=== PATIENT | female | born 1985 | race Caucasian/White ===

== ENCOUNTER 2018-02-25 10:03 | Inpatient (IN) | payer OTHER ==
[2018-02-25] MEDS ORDERED: CITRIC ACID-SODIUM CITRATE 15 ML CUP PO ONE (10:22)
[2018-02-25] MEDS ORDERED: ceFAZolin IN SWFI 2 GM/20 ML SYRINGE IVP ONE (10:22)
[2018-02-25] MEDS ORDERED: LACTATED RINGERS 1,000 ML IV ONE (10:22)
[2018-02-25] MEDS ORDERED: diphenhydrAMINE 50 MG/ML 1 ML VIAL IVP PRN ×2 (10:43)
[2018-02-25] MEDS ORDERED: diphenhydrAMINE 50 MG CAP PO PRN (10:43)
[2018-02-25] MEDS ORDERED: ZOLPIDEM 5 MG TAB PO PRN (10:43)
[2018-02-25] MEDS ORDERED: ONDANSETRON 4 MG/2 ML VIAL IVP PRN (10:43)
[2018-02-25] MEDS ORDERED: METOCLOPRAMIDE 5 MG/ML 2 ML VIAL IVP PRN (10:43)
[2018-02-25] MEDS ORDERED: diphenhydrAMINE 25 MG CAP PO PRN (10:43)
[2018-02-25] MEDS ORDERED: HYDROcodone/APAP 5-325MG 1 EACH TAB PO PRN (10:43)
[2018-02-25] MEDS ORDERED: IBUPROFEN 600 MG TAB PO PRN (10:43)
[2018-02-25] MEDS ORDERED: NALOXONE 0.4 MG/ML 1 ML VIAL IV PRN (10:43)
[2018-02-25] MEDS ORDERED: ACETAMINOPHEN TAB 325 MG TAB PO PRN (10:43)
[2018-02-25] MEDS ORDERED: OXYTOCIN 20 UNITS/1000 ML NS 1,000 ML IV SCH (10:45)
[2018-02-25 10:51] LABS: Basophils % (A) 0 %; Eosinophils # (A) 0.1 k/uL (0-0.7); Eosinophils % (A) 1 %; HCT 40.5 % (34.0-46.0); HGB 13.1 gm/dL (11.4-16.0); Lymphocytes # (A) 1.3 k/uL (1.0-4.8); Lymphocytes % (A) 11 %; MCH 29.2 pg (25.0-35.0); MCHC 32.2 g/dL (31.0-37.0); MCV 90.7 fL (80.0-100.0); Mean Platelet Volume 7.2; Monocytes # (A) 0.5 k/uL (0-1.0); Monocytes % (A) 5 %; Neutrophils # (A) 9.1 k/uL (1.3-7.7); Neutrophils % (A) 80 %; Platelet Count 301 k/uL (150-450); RBC 4.47 m/uL (3.80-5.40); RDW 13.2 % (11.5-15.5); WBC 11.5 k/uL (3.8-10.6)
[2018-02-25] MEDS ORDERED: ACETAMINOPHEN IV (For NPO) 1,000 MG in EMPTY BAG 1 BAG IVPB ONE (11:00)
[2018-02-25 11:06] LABS: Glucose,Whole Blood 112 mg/dL (75-99)
[2018-02-25 11:29] VITALS: BMI 28.1
[2018-02-25] MEDS ORDERED: ONDANSETRON 4 MG/2 ML VIAL ONE (11:32)
[2018-02-25] MEDS ORDERED: MORPHINE SULFATE (PF) 0.3 MG/0.3 ML SYR ONE (11:32)
[2018-02-25] MEDS ORDERED: KETOROLAC 30 MG/ML 1 ML VIAL ONE (11:32)
[2018-02-25] MEDS ORDERED: LACTATED RINGERS 1,000 ML BAG IV ONE (11:32)
[2018-02-25] MEDS ORDERED: OXYTOCIN 10 UNIT/ML 1 ML VIAL ONE (11:32)
[2018-02-25] MEDS ORDERED: NALBUPHINE 10 MG/ML VIAL (10ML MDV) ONE (11:32)
--- NOTE | 2018-02-25 12:45 | P.HPOB ---
History of Present Illness H&P Date: 02/25/18 Chief Complaint: IUP @ 39 2/7 weeks, h/o C/S x 1 desires repeat This is a 32 yo at 39 2/7 weeks that presents for ERCS, prior section done for arrest of labor. she denies any concerns today, + GFM, LOF,VB she has receiveing routine pnc with myself. she is a known DM, type 1 and she is able to manage her BS well with lantus and a short acting novolog. she does see her lithographers printer for management. she has excellent BS control. on lab work she has a blood type of O+, rubella immune, HIV negative, RPR nonreactive, hepatitis B surface antigen negative, GBS positive. Review of Systems Constitutional: Denies chills, Denies fatigue, Denies fever Ears, nose, mouth and throat: Denies headache Cardiovascular: Reports leg edema Respiratory: Denies cough, Denies dyspnea Gastrointestinal: Denies constipation, Denies diarrhea, Denies nausea, Denies vomiting Genitourinary: Reports Past Medical History Past Medical History: Diabetes Mellitus History of Any Multi-Drug Resistant Organisms: None Reported Past Surgical History: Section Past Anesthesia/Blood Transfusion Reactions: No Reported Reaction Smoking Status: Never smoker - Past Family History Mother Family Medical History: No Reported History Medications and Allergies Home Medications Medication Instructions Recorded Confirmed Type Insulin Aspart [NovoLOG] 1 units INJ ACHS PRN 02/21/18 02/25/18 History Insulin Glargine [Lantus] 23 unit INJ HS 02/21/18 02/25/18 History Pnv No.95/Ferrous Fum/Folic AC 1 each PO DAILY 02/25/18 02/25/18 History [ Multivitamin Tablet] Allergies Allergy/AdvReac Type Severity Reaction Status Date / Time No Known Allergies Allergy Verified 02/25/18 10:16 Exam Osteopathic Statement: *. No significant issues noted on an osteopathic structural exam other than those noted in the History and Physical/Consult. targeted physical exam is done on this date, in general this is a well nourished and well developed female in [facility]. she is noted to have non labored breathing, CTA b/l, heart is noted to have a RRR, abdomen is gravid and appropriate, trace LE edema, FHTs, noted to be reactive and no ctx are noted. cervical exam is deferred. - OBG Physical Exam Abdomen: gravid, and appropriate for gestational age Uterus: enlarged Results Result Diagrams: 02/25/18 10:32 Assessment and Plan (1) Term Current Visit: Yes Status: Acute Code(s): Z34.80 - ENCOUNTER FOR SUPRVSN OF NORMAL , UNSP TRIMESTER SNOMED Code(s): 79603743 (2) Diabetes Current Visit: Yes Status: Acute Code(s): E11.9 - TYPE 2 DIABETES MELLITUS WITHOUT COMPLICATIONS SNOMED Code(s): 77330288 (3) H/O section Current Visit: Yes Status: Acute Code(s): Z98.891 - HISTORY OF UTERINE SCAR FROM PREVIOUS SURGERY SNOMED Code(s): 864040676 Plan: plan RCS this am. she is able to maintain good BS control herself and I will let her ocntinue to manage her BS as she has done in the past. we will monitor BS fasting ac ahs in addition.
--- NOTE | 2018-02-25 12:53 | P.OP ---
Date of Procedure: 02/25/18 Preoperative Diagnosis: IUP at 39 and 2/sevenths weeks, type 1 diabetes, history of 1 for arrest of labor Postoperative Diagnosis: Same Procedure(s) Performed: Elective repeat section, with vacuum assist Anesthesia: spinal Surgeon: Yesika Grove Product Support Rep #1: Peng Quintanilla Estimated Blood Loss (ml): 1,000 IV fluids (ml): 1,600 Urine output (ml): 400 Pathology: none sent Condition: stable Disposition: PACU Indications for Procedure: History of 1 desires repeat Operative Findings: Significant scarring is noted from the anterior abdominal wall to the anterior uterus. Bladder flap was noted to be densely adherent taken down sharply with good visualization of the bladder. Male infant delivered at 1206, weight of 9 lbs. 4 oz. with Apgars of 8 and 9 at one and 5 minutes respectively. Description of Procedure: Patient was taken to the operating suite where spinal anesthesia was administered by the anesthesia department. Once the spinal anesthesia was found be adequate she was then prepped and draped in normal sterile fashion in the dorsal supine position. A Pfannenstiel skin incision was made through the old incision site and carried through the underlying layer of fascia. The fascia was then incised in the midline and this was then extended laterally. The rectus muscles were in the midline the peritoneum was identified and entered. Significant anterior abdominal wall adhesions were noted at this time. The incision was then extended with good visualization of the bladder and anterior wall adhesions. Bladder blade was then inserted into the abdomen and the bladder flap was then created using sharp and blunt dissection. A hysterotomy incision was made with the scalpel the amniotic fluid was noted to be clear on rupture. The head was encountered high in the uterus, was then delivered after 3 attempts of a vacuum extraction. Of note a T-incision was preformed to aid in extraction of the infant. 3 pop offs were noted good placement was noted throughout attempts and posterior only attempted once pressure was noted to be in the green zone. Once the was delivered the cord was doubly clamped and cut and handed off to awaiting pediatric nurse. A spontaneous cry was noted with vigorous movement. The placenta was then delivered manually and the uterus was cleared of all clots and debris. Hysterotomy incision was inspected and closed with 0 Vicryl in a running locked fashion 2. Throughout the closure of the uterine incision the Hatfield catheter was noted to be draining clear yellow urine. The hysterotomy site was noted to be hemostatic at this time. A Surgicel was placed over the uterine incision. The fascia was then closed in a running fashion from one lateral edge to the midline and from the other lateral edge the midline. The subcu tissue was irrigated and any points of bleeding were made hemostatic with the bovie. The skin was then closed with 4-0 Vicryl in a subcuticular fashion. Steri-Strips were then applied along with a sterile dressing. All counts are correct 2 patient tolerated procedure well was taken back to her recovery suite.
[2018-02-25] MEDS ORDERED: IBUPROFEN IV 800 MG in SODIUM CHLORIDE 0.9% 250 ML IV ONE (13:30)
[2018-02-25 14:49] LABS: Glucose,Whole Blood 139 mg/dL (75-99)
[2018-02-25] MEDS: Insulin Aspart [Novolog] SQ PRN ×3 (15:20→22:28)
[2018-02-25] MEDS: LACTATED RINGERS 1,000 ML IV SCH ×2 (15:48→19:33)
[2018-02-25 15:55] LABS: Basophils % (A) 0 %; Eosinophils # (A) 0.1 k/uL (0-0.7); Eosinophils % (A) 0 %; HCT 33.6 % (34.0-46.0); HGB 11.2 gm/dL (11.4-16.0); Lymphocytes # (A) 1.6 k/uL (1.0-4.8); Lymphocytes % (A) 8 %; MCH 30.4 pg (25.0-35.0); MCHC 33.2 g/dL (31.0-37.0); MCV 91.4 fL (80.0-100.0); Mean Platelet Volume 7.6; Monocytes # (A) 0.6 k/uL (0-1.0); Monocytes % (A) 3 %; Neutrophils # (A) 18.1 k/uL (1.3-7.7); Neutrophils % (A) 88 %; Platelet Count 289 k/uL (150-450); RBC 3.68 m/uL (3.80-5.40); RDW 13.2 % (11.5-15.5); WBC 20.6 k/uL (3.8-10.6)
[2018-02-25 20:05] LABS: Basophils % (A) 0 %; Eosinophils # (A) 0.2 k/uL (0-0.7); Eosinophils % (A) 1 %; HCT 28.6 % (34.0-46.0); Lymphocytes # (A) 0.9 k/uL (1.0-4.8); Lymphocytes % (A) 5 %; MCH 30.3 pg (25.0-35.0); MCHC 33.4 g/dL (31.0-37.0); MCV 90.6 fL (80.0-100.0); Mean Platelet Volume 7.7; Monocytes # (A) 0.8 k/uL (0-1.0); Monocytes % (A) 4 %; Neutrophils # (A) 17.9 k/uL (1.3-7.7); Neutrophils % (A) 89 %; Platelet Count 262 k/uL (150-450); RBC 3.15 m/uL (3.80-5.40); RDW 13.3 % (11.5-15.5)
[2018-02-25 20:23] LABS: HGB 9.6 gm/dL (11.4-16.0)
--- NOTE | 2018-02-25 20:59 | P.PN ---
Subjective Progress Note Date: 02/25/18 Principal diagnosis: PPD 0 RCS Called in to evaluate patient after bleeding was noted from incision and onto her thigh from dressing, CBC was drawn she went from a preop 13-11.2 then currently 9.6. She is not short of breath she denies dizziness she denies pain. Minimal bleeding was noted from the incision sense I have been on the unit for the last 2 hours. Objective - Vital Signs Vital signs: Vital Signs Temp 98.5 F 02/25/18 19:10 Pulse 100 02/25/18 19:10 Resp 18 02/25/18 19:10 BP 97/63 02/25/18 19:10 Pulse Ox 97 02/25/18 19:10 Intake & Output 02/25/18 02/25/18 02/26/18 06:59 18:59 06:59 Output Total 2049 100 Balance -2049 - Weight 76.657 kg Output: Urine 1050 100 Estimated Blood Loss 1000 - Constitutional General appearance: Present: average body habitus, no acute distress - Gastrointestinal General gastrointestinal: Present: soft - Genitourinary Genitourinary Comment(s): uterus is firm and below the umbilicus - Integumentary Integumentary: Present: normal - Psychiatric Psychiatric: Present: A&O x's 3, appropriate affect, intact judgment & insight - Labs CBC & Chem 7: 02/25/18 19:55 Labs: Abnormal Lab Results - Last 24 Hours (Table) 02/25/18 02/25/18 02/25/18 Range/Units 10:32 10:45 14:30 WBC 11.5 H (3.8-10.6) k/uL RBC (3.80-5.40) m/uL Hgb (11.4-16.0) gm/dL Hct (34.0-46.0) % Neutrophils # 9.1 H (1.3-7.7) k/uL Lymphocytes # (1.0-4.8) k/uL POC Glucose (mg/dL) 112 H 139 H (75-99) mg/dL 02/25/18 02/25/18 Range/Units 15:13 19:55 WBC 20.6 H 20.0 H (3.8-10.6) k/uL RBC 3.68 L 3.15 L (3.80-5.40) m/uL Hgb 11.2 L 9.6 L D (11.4-16.0) gm/dL Hct 33.6 L 28.6 L (34.0-46.0) % Neutrophils # 18.1 H 17.9 H (1.3-7.7) k/uL Lymphocytes # 0.9 L (1.0-4.8) k/uL POC Glucose (mg/dL) (75-99) mg/dL Assessment and Plan (1) Term Current Visit: Yes Status: Acute Code(s): Z34.80 - ENCOUNTER FOR SUPRVSN OF NORMAL , UNSP TRIMESTER SNOMED Code(s): 88187227 (2) Diabetes Current Visit: Yes Status: Acute Code(s): E11.9 - TYPE 2 DIABETES MELLITUS WITHOUT COMPLICATIONS SNOMED Code(s): 13252911 (3) H/O section Current Visit: Yes Status: Acute Code(s): Z98.891 - HISTORY OF UTERINE SCAR FROM PREVIOUS SURGERY SNOMED Code(s): 530114128 (4) Acute blood loss anemia Current Visit: Yes Status: Acute Code(s): D62 - ACUTE POSTHEMORRHAGIC ANEMIA SNOMED Code(s): 274708700 (5) S/P section Current Visit: Yes Status: Acute Code(s): Z98.891 - HISTORY OF UTERINE SCAR FROM PREVIOUS SURGERY SNOMED Code(s): 666641100 Plan: Discussed with patient and patient's the drop in hemoglobin with essentially normal vitals we will monitor overnight any change in her condition may warrant to return to the OR for possible exploration. Patient states understanding and is in agreement with conservative management for tonight.
[2018-02-25] MEDS ORDERED: LANTUS SQ SCH (21:00)
[2018-02-26] MEDS: SENNOSIDES-DOCUSATE SODIUM 1 EACH TAB PO SCH ×2 (00:49→16:35)
[2018-02-26] MEDS: LACTATED RINGERS 500 ML IV SCH ×3 (02:45→16:34)
[2018-02-26 05:46] LABS: Basophils % (A) 0 %; Eosinophils # (A) 0.1 k/uL (0-0.7); Eosinophils % (A) 1 %; HCT 23.2 % (34.0-46.0); Lymphocytes # (A) 1.2 k/uL (1.0-4.8); Lymphocytes % (A) 9 %; MCH 30.1 pg (25.0-35.0); MCHC 32.9 g/dL (31.0-37.0); MCV 91.6 fL (80.0-100.0); Mean Platelet Volume 8.8; Monocytes # (A) 0.7 k/uL (0-1.0); Monocytes % (A) 5 %; Neutrophils # (A) 10.8 k/uL (1.3-7.7); Neutrophils % (A) 83 %; Platelet Count 216 k/uL (150-450); RBC 2.53 m/uL (3.80-5.40); RDW 13.6 % (11.5-15.5); WBC 12.9 k/uL (3.8-10.6)
[2018-02-26 05:49] LABS: HGB 7.6 gm/dL (11.4-16.0)
--- NOTE | 2018-02-26 05:52 | P.PN ---
Progress Note - Text Progress Note Date: 02/26/18 32 yo female status post . Post-op day #1. Patient received intrathecal Duramorph. Patient was seen today, sitting up in bed no complaints, pain VAS score 0/10, no headache, no itching, no nausea and vomiting. Assessment and plan: Doing well in general no complications from anesthesia.
[2018-02-26 05:57] LABS: Anion Gap 3 mmol/L; Blood Urea Nitrogen 12 mg/dL (7-17); Calcium 7.9 mg/dL (8.4-10.2); Carbon Dioxide 27 mmol/L (22-30); Chloride 105 mmol/L (98-107); Glucose 110 mg/dL (74-99); Potassium 4.6 mmol/L (3.5-5.1); Sodium 135 mmol/L (137-145)
--- NOTE | 2018-02-26 08:43 | P.PNOBGPC ---
Subjective - Subjective Principal diagnosis: POD 1 RCS, acute blood loss anemia Interval history: Patient did reasonably well overnight. She was able to sit at the bedside and ambulate a small amount without nausea vomiting or dizziness/shortness of breath. This morning she denies pain. Her Rivas is draining clear yellow urine. lochia is noted to be minimal, is going well Patient reports: Reports appetite normal (rivas draining clear yellow urine, 400 cc in bag ), Reports pain well controlled, Reports ambulating normally [place]: doing well, nursing well Objective - Vital Signs Latest vital signs: Vital Signs Temp Pulse Resp BP Pulse Ox 02/26/18 08:00 99 F 105 H 16 128/74 02/26/18 03:59 98.1 F 123 H 16 109/88 97 02/26/18 00:00 98.7 F 123 H 16 126/65 96 02/25/18 20:00 98.2 F 108 H 16 127/64 97 02/25/18 19:10 98.5 F 100 18 97/63 97 02/25/18 16:42 96.9 F L 98 18 106/56 97 02/25/18 15:30 81 108/57 02/25/18 15:05 88 93/51 02/25/18 14:53 98.0 F 83 18 108/66 97 02/25/18 14:20 83 128/79 02/25/18 13:50 97.8 F 70 18 131/80 97 02/25/18 13:35 97.0 F L 72 18 145/90 98 02/25/18 13:20 96.9 F L 64 18 153/89 99 02/25/18 13:05 97.4 F L 65 18 146/86 99 02/25/18 12:50 97.0 F L 77 18 145/82 99 02/25/18 10:15 98.0 F 83 18 161/94 Intake and Output 02/25/18 02/26/18 02/26/18 22:59 06:59 14:59 Intake Total 1000 950 Output Total 150 179 400 Balance 850 771 -400 Intake: IV 1000 950 Lactated Ringers 1,000 ml 1000 950 @ 125 mls/hr IV .Q8H [facility] Rx#:[id number] Output: Urine 150 179 400 Other: Voiding Method Indwelling Catheter Indwelling Catheter - Exam Extremities: Present: normal Abdomen: Present: normal appearance, soft Incision: Present: normal, dry, intact (old blood noted on the dressing ) Uterus: Present: normal, firm (below the umbilicus) - Labs Labs: Abnormal Lab Results - Last 24 Hours (Table) 02/25/18 02/25/18 02/25/18 Range/Units 10:32 10:45 14:30 WBC 11.5 H (3.8-10.6) k/uL RBC (3.80-5.40) m/uL Hgb (11.4-16.0) gm/dL Hct (34.0-46.0) % Neutrophils # 9.1 H (1.3-7.7) k/uL Lymphocytes # (1.0-4.8) k/uL Sodium (137-145) mmol/L Glucose (74-99) mg/dL POC Glucose (mg/dL) 112 H 139 H (75-99) mg/dL Calcium (8.4-10.2) mg/dL 02/25/18 02/25/18 02/26/18 Range/Units 15:13 19:55 05:24 WBC 20.6 H 20.0 H 12.9 H (3.8-10.6) k/uL RBC 3.68 L 3.15 L 2.53 L (3.80-5.40) m/uL Hgb 11.2 L 9.6 L D 7.6 L D (11.4-16.0) gm/dL Hct 33.6 L 28.6 L 23.2 L (34.0-46.0) % Neutrophils # 18.1 H 17.9 H 10.8 H (1.3-7.7) k/uL Lymphocytes # 0.9 L (1.0-4.8) k/uL Sodium (137-145) mmol/L Glucose (74-99) mg/dL POC Glucose (mg/dL) (75-99) mg/dL Calcium (8.4-10.2) mg/dL 02/26/18 Range/Units 05:24 WBC (3.8-10.6) k/uL RBC (3.80-5.40) m/uL Hgb (11.4-16.0) gm/dL Hct (34.0-46.0) % Neutrophils # (1.3-7.7) k/uL Lymphocytes # (1.0-4.8) k/uL Sodium 135 L (137-145) mmol/L Glucose 110 H (74-99) mg/dL POC Glucose (mg/dL) (75-99) mg/dL Calcium 7.9 L (8.4-10.2) mg/dL Assessment and Plan (1) Term Current Visit: Yes Status: Acute Code(s): Z34.80 - ENCOUNTER FOR SUPRVSN OF NORMAL , UNSP TRIMESTER SNOMED Code(s): 26352871 (2) Diabetes Current Visit: Yes Status: Acute Code(s): E11.9 - TYPE 2 DIABETES MELLITUS WITHOUT COMPLICATIONS SNOMED Code(s): 35916484 (3) H/O section Current Visit: Yes Status: Acute Code(s): Z98.891 - HISTORY OF UTERINE SCAR FROM PREVIOUS SURGERY SNOMED Code(s): 509435783 (4) Acute blood loss anemia Current Visit: Yes Status: Acute Code(s): D62 - ACUTE POSTHEMORRHAGIC ANEMIA SNOMED Code(s): 199502697 (5) S/P section Current Visit: Yes Status: Acute Code(s): Z98.891 - HISTORY OF UTERINE SCAR FROM PREVIOUS SURGERY SNOMED Code(s): 139442463 Plan: will continue postoperative care, attention is made to her urine output. It appears that her acute blood loss anemia most likely decreased her urine output overnight but it is increasing and doing well now. bun creat are nml this am. cbc is reviewed with pt, 9.6-7.6 overnight. She is encouraged to increase ambulation will continue to watch output closely even after Rivas is discontinued this afternoon. will monitor vitals and if necessary draw an additional cbc this afternoon.
[2018-02-26] MEDS ORDERED: PRENATAL VIT-IRON-FOLIC ACID 1 EACH CAP PO SCH (09:00)
[2018-02-26] MEDS: LACTATED RINGERS 1,000 ML IV SCH (15:40)
[2018-02-26] MEDS ORDERED: ceFAZolin 2,000 MG in DEXTROSE/WATER 1 50ML.BAG IVPB SCH (18:00)
[2018-02-26] MEDS: ceFAZolin IN SWFI 2 GM/20 ML SYRINGE IVP SCH (18:12)
[2018-02-26] MEDS ORDERED: LACTATED RINGERS 1,000 ML IV SCH (18:45)
[2018-02-26] MEDS: Insulin Aspart [Novolog] SQ PRN (18:59)
--- NOTE | 2018-02-27 08:40 | P.DS ---
Providers Date of admission: 02/25/18 10:03 Expected date of discharge: 02/27/18 Attending physician: Yesika Grove Primary care physician: Fiona Gabriel - Sarah Diagnosis(es) (1) Term Current Visit: Yes Status: Acute (2) Diabetes Current Visit: Yes Status: Acute (3) H/O section Current Visit: Yes Status: Acute (4) Acute blood loss anemia Current Visit: Yes Status: Acute (5) S/P section Current Visit: Yes Status: Acute Hospital Course: This is a 32-year-old 2 para 1001 at 39-2/7 weeks presented to labor and delivery for elective repeat section. She a prior section for arrest of labor. She received routine care with myself and was a known diabetic type I for which she was able to manage herself without Her police investigator. She has had excellent blood sugar control. Patient was taken back to the operating suite and was performed. Significant dense anterior abdominal wall adhesions were noted along with bladder adhesions. was performed and a viable male was delivered weighing 9 lbs. 4 oz. Patient's postoperative course has been completed by acute blood loss anemia. On this postop day #2 she is feeling well she is ambulating and voiding without difficulty. She is tolerating a regular diet without nausea or vomiting. She denies current concerns and states her pain is well-controlled. She is breast-feeding without difficulty and states her lochia is minimal. Plan - Discharge Summary Discharge Rx Participant: No New Discharge Prescriptions: No Action Insulin Glargine [Lantus] 23 unit INJ HS Insulin Aspart [NovoLOG] 1 units INJ ACHS PRN PRN Reason: 1 unit per 3 grm carbs Pnv No.95/Ferrous Fum/Folic AC [ Multivitamin Tablet] 1 each PO DAILY Discharge Medication List Insulin Aspart [NovoLOG] 1 units INJ ACHS PRN 02/21/18 [History] Insulin Glargine [Lantus] 23 unit INJ HS 02/21/18 [History] Pnv No.95/Ferrous Fum/Folic AC [ Multivitamin Tablet] 1 each PO DAILY [History] Follow up Appointment(s)/Referral(s): Yesika Grove DO [Doctor of Osteopathic Medicine] - 1 Week Patient Instructions/Handouts: (DC), (GEN) Discharge Disposition: HOME SELF-CARE
[2018-02-27 09:18] LABS: HCT 24.6 % (34.0-46.0); MCH 30.8 pg (25.0-35.0); MCHC 32.7 g/dL (31.0-37.0); MCV 94.1 fL (80.0-100.0); Mean Platelet Volume 8.1; Platelet Count 274 k/uL (150-450); RBC 2.61 m/uL (3.80-5.40); RDW 13.6 % (11.5-15.5); WBC 19.9 k/uL (3.8-10.6)
[2018-02-27] MEDS: SENNOSIDES-DOCUSATE SODIUM 1 EACH TAB PO SCH (09:34)
[2018-02-27] MEDS: ceFAZolin IN SWFI 2 GM/20 ML SYRINGE IVP SCH (11:01)
[2018-02-27 12:44] VITALS: BP 144/82; PULSE 120; RESP 16; TEMP 99.8
== END 2018-02-27 14:35 | disposition home or self-care (01) | DRG 786 ==
LOC: 4FBP 10:03
PROVIDERS: ADMIT Obstetrics & Gynecology Obstetrics; ATTEND Obstetrics & Gynecology Obstetrics
PROC: 10D00Z1 Extraction of Products of Conception, Low, Open Approach (ICD-10-PCS; principal; 2018-02-25 12:00)
DX: O34.211 Maternal care for low transverse scar from previous cesarean delivery (principal); O24.02 Pre-existing type 1 diabetes mellitus, in childbirth; D62 Acute posthemorrhagic anemia; O99.02 Anemia complicating childbirth; O99.824 Streptococcus B carrier state complicating childbirth; E10.9 Type 1 diabetes mellitus without complications; Z37.0 Single live birth; Z3A.39 39 weeks gestation of pregnancy; Z79.4 Long term (current) use of insulin
CPT/HCPCS: 80048; 83036; 85025; 85027; 86850; 86900; 86901